=== PATIENT | female | born 1995 | race Caucasian/White ===

== ENCOUNTER 2019-06-03 15:02 | Emergency (ER) | payer OTHER ==
[~2019-06-03] VITALS: Ht 154.9 cm; Wt 54.8 kg
[2019-06-03 15:09] VITALS: BP 120/70; Ht 154.9 cm; Wt 54.8 kg
[2019-06-03] MEDS ORDERED: SOD CHLORIDE 0.9% 1,000 ML IV STA ×2 (15:56→16:00)
[2019-06-03] MEDS ORDERED: KETOROLAC 30 MG INJ IV STA (16:00)
[2019-06-03 16:29] VITALS: PULSE 113; RESP 16
--- NOTE | 2019-06-03 16:30 | ERD ---
ER Documentation Chief Complaint Chief Complaint c/o left sided headache, pt. feel "hot" x1 day HPI 24-year-old female with history of methamphetamine use with stated last use of 8 months ago presents with complaint of headache and feeling hot for the past day. Patient states she has a history of headaches. Patient denies any chest pain, shortness of breath, cough, wheezing. Denies sudden onset, worse headache of life, fever, neck stiffness, rash, headache getting worse with change in position, headache initiated by exertion, CALLEJAS worse in the morning, CALLEJAS waking up patient at night, new neurological deficits, numbness, weakness, vision problems, tenderness to palpation over temporal area, history of trauma, or possibility of CO2 poisoning. Denies past medical history. Denies allergies. Denies surgeries. Philippe alcohol, tobacco, drug use. Up to date on vaccines. ROS All systems reviewed and are negative except as per history of present illness. Medications Home Meds Active Scripts Ibuprofen* (Motrin*) 600 Mg Tab, 600 MG PO Q6, #30 TAB Prov:YENY ENAMORADO 06/03/19 Allergies Allergies: Coded Allergies: No Known Allergy (Unverified , 06/03/19) FmHx Family History: No diabetes, No coronary disease, No other Physical Exam Vitals Vital Signs Date Temp Pulse Resp B/P (MAP) Pulse Ox O2 O2 Flow FiO2 Time Delivery Rate 06/03/19 113 16 99 Room Air 16:29 06/03/19 98.4 148 20 120/70 96 15:09 (87) 06/03/19 98.4 146 20 120/70 96 Room Air 15:08 (87) Physical Exam Const: No acute distress Head: Atraumatic Eyes: Normal Conjunctiva ENT: Normal External Ears, Nose and Mouth. Neck: Full range of motion. No meningismus. Resp: Clear to auscultation bilaterally Cardio: Regular rate and rhythm, no murmurs Abd: Soft, non tender, non distended. Normal bowel sounds Skin: No petechiae or rashes Back: No midline or flank tenderness Ext: No cyanosis, or edema. No tenderness to palpation. Distal sensation is intact. Neur: Awake and alert Psych: Normal Mood and Affect Patient refusing to do neuro exam. Result Diagram: 06/03/19 1627 06/03/19 1627 Results 24 hrs Laboratory Tests Test 06/03/19 16:27 06/03/19 17:30 06/03/19 17:36 06/03/19 17:38 White Blood Count 7.9 10^3/ul Red Blood Count 5.07 10^6/ul Hemoglobin 14.7 g/dl Hematocrit 45.2 % Mean Corpuscular 89.2 fl Volume Mean Corpuscular 29.0 pg Hemoglobin Mean Corpuscular 32.5 g/dl Hemoglobin Concent Red Cell 13.4 % Distribution Width Platelet Count 318 10^3/UL Mean Platelet 9.4 fl Volume Immature 0.300 % Granulocytes % Neutrophils % 60.6 % Lymphocytes % 28.8 % Monocytes % 7.3 % Eosinophils % 1.9 % Basophils % 1.1 % Nucleated Red Blood 0.0 /100WBC Cells % Immature 0.020 10^3/ul Granulocytes # Neutrophils # 4.8 10^3/ul Lymphocytes # 2.3 10^3/ul Monocytes # 0.6 10^3/ul Eosinophils # 0.2 10^3/ul Basophils # 0.1 10^3/ul Nucleated Red Blood 0.0 10^3/ul Cells # Sodium Level 142 mmol/L Potassium Level 4.1 mmol/L Chloride Level 107 mmol/L Carbon Dioxide 23 mmol/L Level Anion Gap 12 Blood Urea Nitrogen 21 mg/dl Creatinine 0.85 mg/dl Est Glomerular > 60 mL/min Filtrat Rate mL/min Glucose Level 94 mg/dl Calcium Level 9.8 mg/dl Total Bilirubin 1.0 mg/dl Direct Bilirubin 0.00 mg/dl Indirect Bilirubin 1.0 mg/dl Aspartate Amino 16 IU/L Transf (AST/SGOT) Alanine 16 IU/L Aminotransferase (A LT/SGPT) Alkaline 79 IU/L Phosphatase Troponin I < 0.012 ng/ml Total Protein 7.7 g/dl Albumin 4.5 g/dl Globulin 3.20 g/dl Albumin/Globulin 1.40 Ratio Thyroid Stimulating 2.050 MIU/L Hormone (TSH) Urine Opiates Negative Screen Urine Barbiturates Negative Urine Amphetamines POSITIVE Screen Urine Negative Benzodiazepines Screen Urine Cocaine Negative Screen Urine Cannabinoids Negative POC Beta HCG, NEGATIVE Qualitative Bedside Urine pH 5.5 (LAB) Bedside Urine 2+ Protein (LAB) Bedside Urine Negative Glucose (UA) Bedside Urine 2+ Ketones (LAB) Bedside Urine Blood 3+ Bedside Urine Negative Nitrite (LAB) Bedside Urine 1+ Leukocyte Esterase (L Current Medications Medications Dose Sig/Lizbet Start Time Status Last (Trade) Ordered Route PRN Stop Time Admin Dose Reason Admin Sodium 1,000 ml @ Q1H STAT 06/03/19 DC 06/03/19 Chloride 1,000 mls/hr IV 15:56 16:38 06/03/19 16:55 Sodium 1,000 ml @ Q1H STAT 06/03/19 DC Chloride 1,000 mls/hr IV 16:00 06/03/19 16:59 Ketorolac 30 mg ONCE STAT 06/03/19 DC 06/03/19 Tromethamine IV 16:00 17:45 (Toradol) 06/03/19 16:06 Procedures/MDM EKG: Rate/Rhythm: Sinus tachycardia QRS, ST, T-waves: No changes consistent w/ acute ischemia Impression: No evidence of ischemia or arrhythmia MDM: Patient was given IV fluids in the ER and pulse was brought down. Patient drug seems positive for amphetamines and she admits to anxiety. This most likely explains her tachycardia. Patient has history of headaches and blood pressure was within normal limits I do not feel that patient needs a CT scan at this time. I have low suspicion for acute coronary syndrome, pulmonary embolism, aortic dissection, AAA, pneumothorax, esophageal rupture, pericarditis, myocarditis, or pneumonia based on EKG, imaging, labs, patient history and exam. I have low suspicion for intracranial hemorrhage, elevated intracranial pressure, intracranial mass, aneurysm, meningitis, malignant hypertension, giant cell arteritis, carotid dissection, intracranial abscess, cerebral venous thrombosis, CO2 poisoning, or other emergent causes of headache based on patients history and exam. At this time, patient is stable for discharge and outpatient management. I have instructed the patient to follow-up with his/her primary care physician in 1-2 days. I have discussed with the patient the possibility of needing to see a specialist for further workup and imaging studies if symptoms persist. I have instructed the patient to promptly return to the ER for any new or worsening symptoms including but not limited to increased pain, fever, nausea, vomiting, weakness or LOC. The patient and/or family expressed understanding of and agreement with this plan. All questions were answered. Home care instructions were provided. DISCLAIMER: Inadvertent spelling and grammatical errors are likely due to EHR/dictation software use and do not reflect on the overall quality of patient care. Also, please note that the electronic time recorded on this note does not necessarily reflect the actual time of the patient encounter. Departure Diagnosis: Primary Impression: Headache Condition: Stable YENY ENAMORADO Jun 03, 2019 16:30
[2019-06-03] MEDS ORDERED: IBUP-1542 PO (17:30)
== END 2019-06-03 17:55 | disposition home or self-care (01) ==
LOC: FTE 15:02
DX: R51 Headache (principal); R06.02 Shortness of breath
CPT/HCPCS: 71045; 80053; 80307; 81003; 81025; 84443; 84484; 85025; 93005; 96361; 96374; J1885; J7030; Z7502